=== PATIENT | female | born 1950 | race Caucasian/White ===

== ENCOUNTER → 2016-10-06 | Outpatient (CLI) | payer BC ==
--- NOTE | 2016-10-07 09:46 | FL ---
EXAMINATION: Sialogram DATE: 10/07/2016 CLINICAL HISTORY: 66-year-old female with right submandibular obstruction. Pain and swelling after ea ting. Patient with history of previous sublingual stone. Total fluoroscopy time: 1.3 minutes TECHNIQUE AND FINDINGS: The risks and benefits of the procedure were discussed with the patient who gave verbal consent. Douglas zhang sterile technique was utilized; the ostium for right Tao duct was located and after initial probing, a 27-gauge sialocatheter was successfully introduced into the opening and the catheter was s ecured by the patient's teeth. Retrograde instillation of a total of 2 mL Omnipaque 240 contrast material demonstrated opacification of the distal [place] duct back toward the angle of the mandible where there is abrupt cut off of t he duct. Just proximally, at the level of the cut off, there is a 7 x 5 mm smooth ovoid calculus. Co ntrast could not pass into the intraglandular ducts. Patient was given lemon juice to help stimulate salivation. Post procedure images show relative johanna yesenia of contrast from the mid to distal [place] duct. IMPRESSION: 1. A 7 x 4 mm smooth ovoid calculus near the level of the right mandibular angle. 2. As there is abrupt cut off of the [place] duct at the level of the calculus, findings suggest an o bstructing sialolith in the proximal duct. 3. Contrast could not reach the submandibular gland.
== END | disposition home or self-care (01) ==
LOC: RADFLWHC 13:20
PROVIDERS: ATTEND Otolaryngology
DX: K11.20 Sialoadenitis, unspecified (principal)
CPT/HCPCS: 70390; Q9966